=== PATIENT | female | born 1980 | race Caucasian/White ===

== ENCOUNTER 2017-05-27 17:00 | Emergency (ER) | payer OTHER ==
[~2017-05-27] VITALS: Ht 165.1 cm; Wt 86.2 kg
--- NOTE | ~2017-05-27 | EKG ---
[address] [address] ELECTROCARDIOGRAM REPORT Name: KATELYNN CRUMP Room #: [facility]#: [id number] Admission: 05/27/17 Attend Phys: Discharge: 05/27/17 Date of : 84 Report #: [id number] THIS REPORT FOR: //name// [facility] ED Test Date: 2017-05-27 Test Time: 19:17:16 Pat Name: KATELYNN CRUMP Department: Room: Gender: F Learning Analyst: MZOOK : 1980 Requested By: Vern Giraldo Order Number: [id number] MD: Guanakito Bonner Measurements Intervals [place] Rate: 68 P: 55 AR: 146 QRS: 70 QRSD: 87 T: 47 QT: 386 QTc: 411 Interpretive Statements Sinus rhythm No previous ECG available for comparison Electronically Signed On 05-27-2017 23:28:31 [employer]Y [employer] by Guanakito Bonner [email or web address] <ELECTRONICALLY SIGNED> By: Guanakito Bonner MD 05/27/17 [id number] 16 Guanakito Bonner MD /JOSE
[2017-05-27 18:39] LABS: URINE BILIRUBIN NEGATIVE (Negative); URINE BLOOD TRACE (Negative); URINE CLARITY CLEAR; URINE COLOR YELLOW; URINE GLUCOSE-RANDOM* NEGATIVE (Negative); URINE KETONES 1+ (Negative); URINE LEUKOCYTES NEGATIVE (Negative); URINE NITRITE NEGATIVE (Negative); URINE PROTEIN (DIPSTICK) NEGATIVE (Negative); URINE SPECIFIC GRAVITY >= 1.030 (1.005-1.035); URINE UROBILINOGEN 0.2 E.U./dl (0.2-1.0)
[2017-05-27] MEDS ORDERED: PROAIR HFA8.5 GM (18:54)
[2017-05-27 18:55] LABS: ABSOLUTE NEUTROPHILS 8.6 thou/uL (1.4-8.2); BASOPHILS 0.6 % (0.0-2.0); EOSINOPHILS 0.7 % (0.0-3.0); HEMATOCRIT 45.1 % (37.0-47.0); HEMOGLOBIN 15.6 gm/dL (12.0-15.0); LYMPHOCYTES 17.7 % (24.0-44.0); MCH 32.1 pg (26.0-34.0); MCHC 34.6 g/dL (28.0-37.0); MCV 92.9 fL (80.0-100.0); PLATELET COUNT 217 thou/uL (150-400); RBC 4.85 mil/uL (4.20-5.00); RDW 12.2 % (10.5-14.5); WBC 11.3 thou/uL (4.0-11.0)
[2017-05-27 19:01] LABS: ANION GAP 9 mmol/L (7-16); BUN 13 mg/dL (7-18); CALCIUM 8.8 mg/dL (8.5-10.1); CHLORIDE 103 mmol/L (98-107); CO2 26 mmol/L (21-32); CREATININE 0.8 mg/dL (0.6-1.0); GLUCOSE 142 mg/dL (74-106); POTASSIUM 3.5 mmol/L (3.5-5.1); SODIUM 138 mmol/L (136-145)
[2017-05-27 19:10] LABS: ALBUMIN 3.8 g/dL (3.4-5.0); SGOT 22 U/L (15-37); SGPT 33 U/L (30-65); TOTAL BILIRUBIN 0.4 mg/dL (<0.1-1.0); TOTAL PROTEIN 7.1 g/dL (6.4-8.2); TROPONIN-I < 0.04 ng/mL (<0.06)
== END 2017-05-27 20:06 | disposition home or self-care (01) ==
LOC: ER 17:00
PROVIDERS: Physician Assistant
DX: R06.02 Shortness of breath (principal); Z77.120 Contact with and (suspected) exposure to mold (toxic); F17.210 Nicotine dependence, cigarettes, uncomplicated; Z88.8 Allergy status to other drugs, medicaments and biological substances